=== PATIENT | male | born 2000 | race Two or more races ===

== ENCOUNTER 2018-11-13 05:26 | Emergency (ER) | payer MEDICAID ==
--- NOTE | 2018-11-13 05:57 | EDM.PDOC ---
ED HPI GENERAL MEDICAL PROBLEM - General Chief Complaint: ENT Problem Stated Complaint: SORE THROAT,HEADACHE AND FEVER Time Seen by Provider: 11/13/18 05:42 Source of Information: Reports: Patient History Limitations: Reports: No Limitations - History of Present Illness INITIAL COMMENTS - FREE TEXT/NARRATIVE: The patient presents with a cough, congestion, runny nose, sore throat and a fever. This started on Monday. He has no ear pain, chest pain, shortness of breath, abdominal pain, nausea or vomiting. He has not been around anyone who is sick. He has no health problems. Onset: Gradual Duration: Day(s): (4) Location: Reports: Other (throat) Quality: Reports: Sharp Severity: Moderate Improves with: Reports: None Worsens with: Reports: None Associated Symptoms: Reports: Cough, Fever/Chills. Denies: Chest Pain, Headaches, Nausea/Vomiting, Shortness of Breath Throat Pain Score (Numeric/FACES): 9 - Related Data Allergies Allergy/AdvReac Type Severity Reaction Status Date / Time No Known Allergies Allergy Verified 11/13/18 05:40 Home Meds: Home Meds . [No Known Home Meds] 11/13/18 [History] Social & Family History - Tobacco Use Smoking Status *Q: Never Smoker - Caffeine Use Caffeine Use: Reports: Tea - Recreational Drug Use Recreational Drug Use: No ED ROS ENT - Review of Systems Review Of Systems: See Below Constitutional: Reports: Fever, Chills HEENT: Reports: Throat Pain Respiratory: Reports: Cough. Denies: Shortness of Breath Cardiovascular: Reports: No Symptoms Endocrine: Reports: No Symptoms GI/Abdominal: Reports: No Symptoms ED EXAM, ENT - Physical Exam Exam: See Below Exam Limited By: No Limitations General Appearance: Alert, No Apparent Distress Ears: Normal External Exam, Normal Canal Nose: Normal Inspection Mouth/Throat: Pharyngeal Erythema, Throat Pain, Tonsillar Erythema, Tonsillar Swelling Head: Atraumatic, Normocephalic Neck: Normal Inspection, Supple, Non-Tender Respiratory/Chest: No Respiratory Distress, Lungs Clear, Normal Breath Sounds Cardiovascular: Regular Rate, Rhythm, No Edema, No Murmur GI/Abdominal: Soft, Non-Tender, No Organomegaly, No Mass Back: Normal Inspection Extremities: Normal Inspection Course - Vital Signs Last Recorded V/S: Last Vital Signs Temp 98.4 F 11/13/18 05:36 Pulse 71 11/13/18 05:36 Resp 18 11/13/18 05:36 BP 136/76 11/13/18 05:36 Pulse Ox 100 11/13/18 05:36 - Orders/Labs/Meds Orders: Active Orders 24 hr Category Date Time Status CULTURE STREP A CONFIRMATION [RM] Stat Lab 11/13/18 05:45 Results STREP SCRN A RAPID W CULT CONF [RM] Stat Lab 11/13/18 05:45 Results - Re-Assessments/Exams Free Text/Narrative Re-Assessment/Exam: 11/13/18 05:57 I ordered a rapid strap. 11/13/18 06:31 The rapid strep was negative. This appears to be viral. I will discharge him home. Departure - Departure Time of Disposition: 06:35 Disposition: Home, Self-Care 01 Condition: Good Clinical Impression: Viral pharyngitis, Viral upper respiratory illness - Discharge Information *PRESCRIPTION DRUG MONITORING PROGRAM REVIEWED*: Not Applicable *COPY OF PRESCRIPTION DRUG MONITORING REPORT IN PATIENT GRAZY[place]: Not Applicable Referrals: PCP,Not In Area [Primary Care Provider] - Forms: ED Department Discharge, ED Return to Work/School Form Additional Instructions: Drink plenty of fluids. Take tylenol or motrin for pain. You may also try some over the counter cold and cough medicine. Please return if you are worse. - My Orders Last 24 Hours: My Active Orders 11/13/18 05:45 CULTURE STREP A CONFIRMATION [RM] Stat STREP SCRN A RAPID W CULT CONF [RM] Stat - Assessment/Plan Last 24 Hours: My Active Orders 11/13/18 05:45 CULTURE STREP A CONFIRMATION [RM] Stat STREP SCRN A RAPID W CULT CONF [RM] Stat
== END 2018-11-13 06:39 | disposition home or self-care (01) ==
LOC: JD.ED 05:26
DX: J02.9 Acute pharyngitis, unspecified (principal)
CPT/HCPCS: 87081; 87430; 99282; 99283